=== PATIENT | male | born 1935 | race Caucasian/White ===

== ENCOUNTER 2016-12-08 23:10 | Inpatient (IN) | payer OTHER, MEDICARE ==
[2016-12-08 23:29] LABS: BASOPHIL 2.2 % (0-2.0); EOSINOPHIL 2.7 % (0-4.5); MCH 32.2 pg (25.7-33.7); MCHC 33.7 g/dl (32.0-35.9); MEAN CELL VOLUME 95.5 fl (80-96); MEAN PLT VOLUME 7.8 fl (7.5-11.1); NEUTROPHILS 62.2 % (42.8-82.8); PLATELET COUNT 260 K/MM3 (134-434); RDW 12.7 % (11.9-15.9); WHITE BLOOD COUNT 9.3 K/mm3 (4.0-10.8)
--- NOTE | 2016-12-08 23:30 | PDOC ---
History of Present Illness - General Chief Complaint: Syncope/Near Syncope Stated Complaint: BIBA, S/P SYNCOPAL EPISODE Time Seen by Provider: 12/08/16 23:23 - History of Present Illness Initial Comments: 12/08/16 23:38 This 81-year-old man without significant past medical history is brought in by ambulance with a history of syncope and abdominal discomfort. Patient states that he felt lightheaded at approximately 10 PM tonight; he may have felt some vague abdominal discomfort at this time. He went to his bedroom to lie down. He became more lightheaded with diaphoresis and felt nausea with "pressure" on the right side of his abdomen. He attempted to go to the bathroom but fainted when he arose, striking his head and right knee. Patient quickly regained consciousness and was able to walk to the bathroom. He was found by his , sitting on the toilet, bleeding from forehead wound and she called EMS. He denies chest pain, palpitations or shortness of breath. In retrospect, the patient and his recall that he felt lightheaded 4 days prior to presentation when he was attending a . Conditions were crowded and hot; symptoms resolved when conditions improved. He had no loss of consciousness or fall at that time. Prior to that, his only other syncopal episode was at age 21. Soon after patient arrived in the emergency room, awake and alert, he had urge to have a bowel movement: Patient had passage of loose stool. After this, patient states that he had resolution of most of his abdominal discomfort. Nonsmoker Drinks a glass of wine with dinner each night On no medications NO KNOWN DRUG ALLERGIES Past History - Past Medical History Allergies/Adverse Reactions: Allergies Allergy/AdvReac Type Severity Reaction Status Date / Time No Known Allergies Allergy Verified 03/18/16 08:54 Home Medications: Ambulatory Orders NK [No Known Home Medication] 02/18/15 Anemia: No Asthma: No Cancer: No Cardiac Disorders: No CVA: No COPD: No CHF: No Dementia: No Diabetes: No GI Disorders: No Disorders: No HTN: No Hypercholesterolemia: No Liver Disease: No Seizures: No Thyroid Disease: No - Surgical History Abdominal Surgery: No Appendectomy: No Cardiac Surgery: No Cholecystectomy: No Lung Surgery: No Neurologic Surgery: No Orthopedic Surgery: No - Suicide/Smoking/Psychosocial Hx Smoking History: Former smoker Have you smoked in the past 12 months: No Number of Cigarettes Smoked Daily: 0 If you are a former smoker, when did you quit?: 1974 Information on smoking cessation initiated: No Hx Alcohol Use: No Drug/Substance Use Hx: No Substance Use Type: Alcohol Hx Substance Use Treatment: No Cardiac Specific PMH - Complaint Specific PMHX Pacemaker: No Review of Systems - Review of Systems Able to Perform ROS?: Yes Comments:: 12 point review of systems is negative except for what is noted in the history of present illness *Physical Exam - Vital Signs Last Vital Signs Temp Pulse Resp BP Pulse Ox 98.6 F 77 18 163/73 100 12/09/16 03:12/09/16 03:12/09/16 03:12/09/16 03:12/09/16 03:50 - Physical Exam Comments: GENERAL: Elderly man, alert and oriented 3, in no acute distress EYES: PERRLA, pupils 2 mm and equal, EOMI, sclera anicteric, conjunctiva clear. ENT: Ears normal, nares patent, oropharynx clear without exudates. Dry mucous membranes. NECK: Normal range of motion, supple without lymphadenopathy, JVD, or masses. LUNGS: Breath sounds equal, clear to auscultation bilaterally. No wheezes, and no crackles. HEART:Regular rate and rhythm, normal S1 and S2 without murmur, rub or gallop. ABDOMEN:.normal bowel sounds No guarding,tenderness or rebound.No masses No distention. Palpable femoral pulse bilaterally EXTREMITIES: Normal range of motion, no edema. No clubbing or cyanosis. No erythema, or tenderness. NEUROLOGICAL: Cranial nerves II through XII grossly intact. Normal speech. No focal neurological deficits. MUSCULOSKELETAL: Back non-tender to palpation, no CVA tenderness SKIN: Midline forehead skin tear4 cm by 3 cm irregular bordered skin tear Right anterior knee abrasion2 cm by 1 cm Left anterior lower leg skin tearsproximal, flap shaped 3 cm Distal, 5 cm by 4 cm along the midline anterior mid-tibial surface Eligibility Checklist For AMI - INCLUSION CRITERIA Prolonged (>30 minutes)ischemic pain: No 12 Lead ECG indicates AMI: Yes ST elevation >1 mm in at least 2 limb leads: Yes ST elevation>2 mm in at least 2 contiguous precordial leads: No LBBB with clinical symptoms consistent with an AMI: No - EXCLUSION CRITERIA Active internal bleeding or hx of hemorrhagic diathesis: No Known bleeding diathesis: No Major surgery or serious trauma within the previous 6 weeks: No (head injury with current syncope; CT negative) History of cerebrovascular accident(CVA): No History of central nervous system structural abnormality: No History of malignant hypertension or uncontrolled HTN: No Hemostatic defects secondary to severe hepatic/renal disease: No Diabetic hemorrhagic retinopathy: No or recent delivery(within 6 weeks): No Patients currently receiving oral anticoagulants(INR>2): No ED Treatment Course - LABORATORY CBC & Chemistry Diagram: 12/08/16 23:19 12/08/16 23:19 - ADDITIONAL ORDERS Additional order review: Laboratory Results 12/08/16 12/08/16 12/08/16 23:48 23:23 23:19 PT with INR INR Sodium 138 Potassium 4.1 Chloride 109 H Carbon Dioxide 20 L D Anion Gap 9 BUN 25 H Creatinine 1.7 H D Creat Clearance w eGFR 38.97 Random Glucose 202 H D Calcium 9.4 Total Bilirubin 1.2 H D AST 72 H D ALT 49 H D Alkaline Phosphatase 49 Creatine Kinase 111 Troponin I 0.50 Total Protein 6.2 L Albumin 3.8 Stool Occult Blood Negative 12/08/16 23:19 PT with INR 12.6 INR 1.13 Sodium Potassium Chloride Carbon Dioxide Anion Gap BUN Creatinine Creat Clearance w eGFR Random Glucose Calcium Total Bilirubin AST ALT Alkaline Phosphatase Creatine Kinase Troponin I Total Protein Albumin Stool Occult Blood 12/08/16 23:19 RBC 4.51 MCV 95.5 MCHC 33.7 RDW 12.7 MPV 7.8 Neutrophils % 62.2 Lymphocytes % 24.7 Monocytes % 8.2 Eosinophils % 2.7 Basophils % 2.2 H D - RADIOLOGY Radiology Studies Ordered: Category Date Time Status ABDOMEN & PELVIS CT W/O CONTR [CT] Stat CT Scan 12/08/16 23:[address] WITHOUT CONTRAST [CT] Stat CT Scan 12/08/16 23:30 Taken CHEST X-RAY PORTABLE* [RAD] Stat Radiology 12/09/16 01:12 Taken - Medications Given in the ED: ED Medications Discontinued Medications Generic Name Dose Route Start Last Admin Trade Name Freq PRN Reason Stop Dose Admin Aspirin 162 mg 12/09/16 00:39 12/09/16 01:04 Asa - PO 12/09/16 00:40 162 mg ONCE ONE Administration Clopidogrel Bisulfate 300 mg 12/09/16 00:42 12/09/16 01:04 Plavix - PO 12/09/16 00:43 300 mg ONCE ONE Administration Enoxaparin Sodium 80 mg 12/09/16 00:45 12/09/16 00:47 Lovenox - SQ 80 mg ONCE MELODY Administration Metoprolol Tartrate 25 mg 12/09/16 01:37 12/09/16 01:40 Lopressor - PO 12/09/16 01:38 25 mg ONCE ONE Administration Medical Decision Making - Medical Decision Making 12/09/16 00:31 12-lead electrocardiogram notable for normal sinus rhythm at 70 bpm; ST elevations (2 mm) in the inferior leads; is also ST segment depressions in V1 and V2. [place] is normal. There is first-degree AV block with SC interval of 238ms Laboratory evaluation notable for troponin of 0.50. Also, transaminase levels are mildly elevated. Case discussed with Dr. Villarreal. In light of patient's lack of chest pain, shortness of breath, palpitations, etc., the timeframe of patient's infarct is unclear (that is, injury may have been a few days ago). Therefore, fibrinolytic therapy was not recommended. Preliminary interpretation of noncontrast head CT by Dr. Sorto: No evidence of bleed or other acute intracranial abnormalities. Preliminary interpretation of noncontrast abdominal/pelvic CT by Dr. Sorto: Diverticulosis without evidence of abscess/aneurysm or other acute intra- abdominal process. Lovenox/Plavix/aspirin will be administered as usual Lopressor 25mg given PO 12/09/16 01:36 Dr. Villarreal contacted again: Considering the unclear time course of myocardial injury, emergent catheterization not planned. Patient will be admitted for further diagnostic studies as per medical course Case discussed with [facility] service. Patient will be admitted to telemetry here at [facility]. Portable chest x-ray performed: No acute disease Using sterile technique, for head skin tear and left lower extremity skin tears were cleansed using sterile normal saline and partially avulsed skin brought back over the exposed dermis. Dermabond skin glue was used in areas of close skin approximation. The wounds were covered with dry sterile gauze on the leg and large Band-Aid on the forehead. Right knee skin abrasion was cleansed and covered with bacitracin/Band-Aid *DC/Admit/Observation/Transfer Diagnosis at time of Disposition: Syncope Acute AR Qualifiers: Myocardial infarction ST status: ST elevation myocardial infarction - Discharge Dispostion Condition at time of disposition: Guarded Admit: Yes Decision to Admit order Date/Time: Decision to Admit Order Category Date Time Status Decision to Admit to Hospital Routine Admission 12/09/16 02:15 Active
[2016-12-08 23:36] LABS: INR 1.13 (0.82-1.09); PROTHROMBIN TIME (PATIENT) 12.6 SEC (10.2-13.0)
[2016-12-08 23:41] LABS: ALBUMIN 3.8 g/dl (3.5-5.0); ALK PHOS 49 U/L (32-92); ANION GAP 9 (8-16); BILIRUBIN,TOTAL 1.2 mg/dl (0.2-1.0); CALCIUM 9.4 mg/dl (8.4-10.2); CO2 20 mmol/L (22-28); CREATININE 1.7 mg/dl (0.6-1.3); GLUCOSE,RANDOM 202 mg/dl (74-106); SGOT/AST 72 U/L (10-42); SGPT/ALT 49 U/L (10-40); TOT PROT 6.2 g/dl (6.4-8.3)
[2016-12-08 23:49] LABS: TROPONIN I (DFP) 0.5 ng/ml (0.03-0.50)
[2016-12-09] MEDS ORDERED: ASPIRIN 81 MG CHEWABLE TABLETS PO ONE (00:39)
[2016-12-09] MEDS ORDERED: CLOPIDOGREL BISULFATE 300 MG TABLET PO ONE (00:42)
[2016-12-09] MEDS ORDERED: ENOXAPARIN NA (PORCINE) 80 MG/0.8 ML DISP.SYRIN SQ ONE (00:45)
[2016-12-09] MEDS ORDERED: ENOXAPARIN NA (PORCINE) 80 MG/0.8 ML DISP.SYRIN SQ SCH ×2 (00:45→12:00)
[2016-12-09] MEDS ORDERED: ENOXAPARIN NA (PORCINE) 100 MG/1 ML DISP.SYRIN SQ ONE (00:49)
[2016-12-09] MEDS ORDERED: ASPIRIN 81 MG CHEWABLE TABLETS ONE ×2 (00:49→00:50)
[2016-12-09] MEDS ORDERED: CLOPIDOGREL BISULFATE 300 MG TABLET ONE (00:49)
[2016-12-09] MEDS ORDERED: METOPROLOL TARTRATE 25 MG TABLET (FP) PO ONE (01:37)
[2016-12-09] MEDS ORDERED: METOPROLOL TARTRATE 50 MG TABLET (FP) ONE (01:41)
[2016-12-09] MEDS ORDERED: SODIUM CHLORIDE 1,000 ML IV SCH (02:15)
--- NOTE | 2016-12-09 02:32 | HOSP ---
Physical Examination Vital Signs: Vital Signs Temperature 98 F 12/08/16 23:11 Pulse Rate 72 12/09/16 00:30 Respiratory Rate 14 12/09/16 00:30 Blood Pressure 150/64 12/09/16 00:30 O2 Sat by Pulse Oximetry (%) 98 12/09/16 00:30 Labs: CBC, BMP 12/08/16 23:19 12/08/16 23:19 Hospitalist Encounter Assessment: Got a microblog for an admission for patient Gopi Lyons. Spoke with Dr. Vogt over the phone who mentioned that patient came in to the ER due to syncope and abdominal discomfort. Vitals were stable. Labs were significant for creatinine 1.7, troponin 0.5. EKG showed ST elevation in inferior leads. Patient was treated for STEMI with Aspirin 162mg; Plavix 300 mg and Lovenox 80 mg sq in the ED. Requested Dr. Vogt to speak with the self pay collector Dr. Villarreal regarding catheterization and if she recommended cath, to transfer the patient from [facility] for cath in tertiary care center. Dr. Villarreal mentioned patient doesn't need emergent cath at this time and agreed to the above mentioned plan. Notified Dr. Hudson. A/P: 81-year-old man without significant past medical history is brought in by ambulance with a history of syncope and abdominal discomfort was found to be in STEMI # STEMI Admit in Telemetry in [facility]. Continuous cardiac monitoring Continue Aspirin 81mg, Plavix 75mg Daily Lovenox 80mg sq BID Repeat Troponin at 6am Repeat EKG in am ECHO ordered Lipid panel and A1c ordered Cardiology consult requested (Dr. Villarreal). No emergent cath required as per cardio since patient is not in active chest pain, troponin is mildly elevated. Would consider transferring patient to tertiary center for possible cath # YOVANA likely prerenal Creatinine 1.7 (baseline 1.1 in 2016) IV NS @ 83mls.hr Avoid nephrotoxic drugs Repeat Creatinine Urine electrolytes in am. # Syncope could be due to dehydration. R/O Arrythmia, electrolyte imbalance ECHO, Carotid doppler TSH Case discussed with Dr. Hudson who agrees to the above plan. Will sign out to day team. Visit type - Emergency Visit Emergency Visit: Yes ED Registration Date: 12/09/16 Care time: The patient presented to the Emergency Department on the above date and was hospitalized for further evaluation of their emergent condition. - New Patient This patient is new to me today: Yes Date on this admission: 12/09/16 - Critical Care Critical Care patient: No
[2016-12-09 03:49] VITALS: TEMP 98.6
[2016-12-09 04:04] VITALS: BMI 27.6
[2016-12-09 07:01] LABS: URINE APPEARANCE Clear; URINE BILIRUBIN Negative (NEGATIVE); URINE BLOOD Trace-intact (NEGATIVE); URINE COLOR YELLOW; URINE GLUCOSE (UA) Negative (NEGATIVE); URINE KETONE Negative (NEGATIVE); URINE LEUK ESTERASE Negative (NEGATIVE); URINE NITRITE Negative (NEGATIVE); URINE PROTEIN Negative (NEGATIVE); URINE UROBILINOGEN 0.2 (0.2-1.0)
[2016-12-09 07:02] LABS: URINE BACTERIA FEW /hpf (NEGATIVE); URINE RBC 0-3 /hpf (0-3); URINE WBC 0-3 (3-5)
--- NOTE | 2016-12-09 07:29 | HP ---
CHIEF COMPLAINT: syncopal episode PCP: Dr Herrera HISTORY OF PRESENT ILLNESS: Patient is a 81 y/o with no significant past medical history as per the patient. He reports arriving home yesterday (12/08/16 ) and felt increasingly [place]. [place] [id number] his nausea increased and attempted to ambulate to the bathroom in which he had a syncopal episode. He reports waking up on the floor with a headache and was transported to the emergency department by EMS. Patient also reports at 5 days ago he was walking and developed an episode of lightheadness and diaphoresis. He attributed his symptoms to the heat and did not seek medical attention at the time. Moreover, his reports for the past 2 months, the patient has been experiencing increased fatigue with lack of interest in everyday activities. Patient denies any chest pain or chest discomfort. ER course was notable for: (1) [place] 0009 ST elevations in II, III, AVF (2) troponin 0.5 (3) plavix 300mg, lopressor 25mg, lovenox 80mg given in ED (4) roll line operator Dr Villarreal consulted in ED by ED physician Recent Travel: none PAST MEDICAL HISTORY: none PAST SURGICAL HISTORY: none Social History: resides at home retired with his Smoking: none Alcohol:none Drugs: none Family History: mother and father of natural causes Allergies No Known Allergies Allergy (Verified 03/18/16 08:54) HOME MEDICATIONS: Home Medications Medication Instructions Recorded NK [No Known Home Medication] 02/18/15 REVIEW OF SYSTEMS CONSTITUTIONAL: Absent: fever, chills, diaphoresis, generalized weakness, malaise, loss of appetite, weight change HEENT: Absent: rhinorrhea, nasal congestion, throat pain, throat swelling, difficulty swallowing, mouth swelling, ear pain, eye pain, visual changes CARDIOVASCULAR: Absent: chest pain, syncope, palpitations, irregular heart rate, lightheadedness , peripheral edema RESPIRATORY: Absent: cough, shortness of breath, dyspnea with exertion, orthopnea, wheezing, stridor, hemoptysis GASTROINTESTINAL: Present: nausea, Absent: abdominal pain, abdominal distension, vomiting, diarrhea, constipation , melena, hematochezia GENITOURINARY: Absent: dysuria, frequency, urgency, hesitancy, hematuria, flank pain, genital pain MUSCULOSKELETAL: Absent: myalgia, arthralgia, joint swelling, back pain, neck pain SKIN: Absent: rash, itching, pallor HEMATOLOGIC/IMMUNOLOGIC: Absent: easy bleeding, easy bruising, lymphadenopathy, frequent infections ENDOCRINE: Absent: unexplained weight gain, unexplained weight loss, heat intolerance, cold intolerance NEUROLOGIC: Absent: headache, focal weakness or paresthesias, dizziness, unsteady gait, seizure, mental status changes, bladder or bowel incontinence PSYCHIATRIC: Absent: anxiety, depression, suicidal or homicidal ideation, hallucinations. PHYSICAL EXAMINATION Vital Signs - 24 hr 12/09/16 12/09/16 12/09/16 03:11 03:48 03:50 Temperature 98.6 F Pulse Rate 77 Respiratory 18 Rate Blood Pressure 163/73 O2 Sat by Pulse 100 100 Oximetry (%) GENERAL: Awake, alert, and fully oriented, in no acute distress. HEAD: abrasion to nose and avulsion to forehead EYES: Pupils equal, round and reactive to light, extraocular movements intact, sclera anicteric, conjunctiva clear. No lid lag. EARS, NOSE, THROAT: Ears normal, nares patent, oropharynx clear without exudates. Moist mucous membranes. NECK: Normal range of motion, supple without lymphadenopathy, JVD, or masses. LUNGS: Breath sounds equal, clear to auscultation bilaterally. No wheezes, and no crackles. No accessory muscle use. HEART: Regular rate and rhythm, normal S1 and S2, 2/6 systolic murmur, rub or gallop. ABDOMEN: Soft, nontender, not distended, normoactive bowel sounds, no guarding, no rebound, no masses. No hepatomegaly or splenomegaly. MUSCULOSKELETAL: Normal range of motion at all joints. No bony deformities or tenderness. No CVA tenderness. UPPER EXTREMITIES: 2+ pulses, warm, well-perfused. No cyanosis. No clubbing. No peripheral edema. LOWER EXTREMITIES: 2+ pulses, warm, well-perfused. No calf tenderness. No peripheral edema. abrasion to the left lower extremity NEUROLOGICAL: Cranial nerves II-XII intact. Normal speech. Normal gait. PSYCHIATRIC: Cooperative. Good eye contact. Appropriate mood and affect. SKIN: Warm, dry, normal turgor, no rashes or lesions noted, normal capillary refill. ASSESSMENT/PLAN: F/E/N -NPO - replete lytes prn ppx - pepcid - heparin gtt dispo: requires immediate transfer to [place] shift lab technician, case accepted by Dr Evans roll line operator, pt en route to [facility] at 0930 via ALS ambulance, with patient made aware all questions answered. Problem List - Problem (1) Acute NH Assessment/Plan: - ekg reviewed from ED, notable for acute inferior wall NH, first troponin 0.5, patient immediately started on heparin gtt, lipitor ordered, second troponin 33 , second ekg notable for first degree AV Block, left axis deviation, st elevations in lead III and AVF, [facility] contacted, case discussed with Dr Trinidad, roll line operator at [facility], and patient accepted to labor relations consultant at [facility], ALS transport team dispatched - stat ECHO - continue heparin gtt - Dr Wilkinson roll line operator notified and agrees with plan Code(s): I21.3 - ST ELEVATION (STEMI) MYOCARDIAL INFARCTION OF [facility] SITE Qualifiers: Myocardial infarction ST status: ST elevation myocardial infarction (2) Syncope Assessment/Plan: - continous cardiac monitoring, secondary to hypovolemia Code(s): R55 - SYNCOPE AND COLLAPSE (3) YOVANA (acute kidney injury) Assessment/Plan: -creatine 1.6 secondary to hypovolemia, gentle iv hydration initiated, repeat creatine is 1.3 closer to baseline of 1.0 - continue ivf, repeat bmp at 1800 Code(s): N17.9 - ACUTE KIDNEY FAILURE, UNSPECIFIED Visit type - Emergency Visit Emergency Visit: Yes ED Registration Date: 12/09/16 Care time: The patient presented to the Emergency Department on the above date and was hospitalized for further evaluation of their emergent condition. - New Patient This patient is new to me today: Yes Date on this admission: 12/09/16 - Critical Care Critical Care patient: Yes Total Critical Care Time (in minutes): 60 Critical Care Statement: The care of this patient involved high complexity decision making to prevent further life threatening deterioration of the patient 's condition and/or to evaluate & treat vital organ system(s) failure or risk of failure.
[2016-12-09 07:38] LABS: BASOPHIL 0.2 % (0-2.0); EOSINOPHIL 0.8 % (0-4.5); MCHC 33.2 g/dl (32.0-35.9); MEAN CELL VOLUME 96.4 fl (80-96); MEAN PLT VOLUME 7.6 fl (7.5-11.1); NEUTROPHILS 83.7 % (42.8-82.8); PLATELET COUNT 234 K/MM3 (134-434); RDW 12.5 % (11.9-15.9); WHITE BLOOD COUNT 10.6 K/mm3 (4.0-10.8)
[2016-12-09 08:04] LABS: ALBUMIN 3.5 g/dl (3.5-5.0); ALK PHOS 48 U/L (32-92); ANION GAP 4 (8-16); BILIRUBIN,TOTAL 0.4 mg/dl (0.2-1.0); CALCIUM 8.8 mg/dl (8.4-10.2); CO2 23 mmol/L (22-28); CREATININE 1.3 mg/dl (0.6-1.3); GLUCOSE,RANDOM 145 mg/dl (74-106); SGOT/AST 117 U/L (10-42); SGPT/ALT 48 U/L (10-40); TOT PROT 5.5 g/dl (6.4-8.3)
[2016-12-09 08:20] LABS: TROPONIN I 33.87 ng/ml (0.00-0.05)
[2016-12-09] MEDS ORDERED: HEPARIN INFUSION - 500 ML IVPB SCH (08:30)
[2016-12-09] MEDS ORDERED: HEPARIN NA (PORCINE) 5,000 UNITS/ML 1ML VIAL IVPUSH ONE (08:43)
[2016-12-09] MEDS ORDERED: HEPARIN NA (PORCINE) 5,000 UNITS/ML 1ML VIAL IVPUSH PRN ×2 (08:43)
[2016-12-09] MEDS ORDERED: HEPARIN INFUSION - 500 ML IV SCH (08:45)
[2016-12-09] MEDS ORDERED: ATORVASTATIN CA 80 MG TABLET (FP) PO ONE (08:50)
--- NOTE | 2016-12-09 09:35 | EKG ---
Test Reason : Blood Pressure : / mmHG Vent. Rate : 070 BPM Atrial Rate : 070 BPM P-R Int : 238 ms QRS Dur : 102 ms QT Int : 388 ms P-R-T Axes : 019 -17 026 degrees QTc Int : 419 ms SINUS RHYTHM WITH SINUS ARRHYTHMIA WITH 1ST DEGREE A-V BLOCK ACUTE INFERIOR-POSTERIOR INFARCT ACUTE UT / STEMI ABNORMAL ECG NO PREVIOUS ECGS AVAILABLE Confirmed by CATRACHITA PETTIT, LEANNA ([id number]) on 12/09/2016 9:35:21 AM Referred By: MD ELLIS Confirmed By:LEANNA DOMÍNGUEZ MD
--- NOTE | 2016-12-09 09:38 | CON.CARD ---
Consult Consult Specialty:: Cardiology Referred by:: Dr. Jes Whitaker Reason for Consultation:: Inferior STEMI, syncope - History of Present Illness Chief Complaint: Syncope History of Present Illness: 81 yo male with no significant past medical history who was admitted yesterday with fatigue/nausea, which increased at ~ 10 PM last evening and was followed by syncope when walking to bathroom. He sustained head trauma and abrasion to his forehead and extremities. He denies any chest pain or palpitations prior to syncopal event. However, his reports that he has been feeling more fatigued over the past several months. Denies melena, hematochezia, or hematemesis. ECG in ED demonstrated ST elevation in inferior leads and ST depression in V1-2 suggestive of inferior-posterior infarct. Initial troponin was 0.5 (at 23:23) but increased to 33.87 (at 7:00 AM today). Currently remains without chest pain. Head CT demonstrated moderate atrophy but no acute intracranial process. - History Source History Provided By: Patient, Significant Other Limitations to Obtaining History: No Limitations - Alcohol/Substance Use Hx Alcohol Use: No - Smoking History Smoking history: Former smoker Have you smoked in the past 12 months: No Aproximately how many cigarettes per day: 0 If you are a former smoker, when did you quit?: 1974 Home Medications - Allergies Allergies/Adverse Reactions: Allergies Allergy/AdvReac Type Severity Reaction Status Date / Time No Known Allergies Allergy Verified 03/18/16 08:54 - Home Medications Home Medications: Ambulatory Orders NK [No Known Home Medication] 02/18/15 Family Disease History - Family Disease History Family History: Denies (premature CAD) Review of Systems - Review of Systems Constitutional: denies: Fever, Night Sweats, Unintentional Wgt. Loss Cardiovascular: denies: Chest Pain, Edema, Palpitations Respiratory: reports: SOB on Exertion Gastrointestinal: reports: Nausea Genitourinary: reports: No Symptoms Musculoskeletal: reports: No Symptoms Neurological: reports: Syncope Endocrine: reports: No Symptoms Hematology/Lymphatic: reports: No Symptoms Psychiatric: reports: No Symptoms Vital Signs: Vital Signs Temperature 98.6 F 12/09/16 03:11 Pulse Rate 77 12/09/16 03:11 Respiratory Rate 18 12/09/16 03:11 Blood Pressure 163/73 12/09/16 03:11 O2 Sat by Pulse Oximetry (%) 100 12/09/16 03:50 Constitutional: Yes: Well Nourished, No Distress Eyes: Yes: Conjunctiva Clear, EOM Intact HENT: Yes: Other (abrasion on forehead and nose) Respiratory: Yes: CTA Bilaterally Gastrointestinal: Yes: Normal Bowel Sounds, Soft. No: Distention, Tenderness Cardiovascular: Yes: Regular Rate and Rhythm JVD: No Carotid Bruit: No PMI: Non-Displaced Heart Sounds: Yes: S1, S2 Murmur: No: Systolic Murmur Edema: No Peripheral Pulses WNL: Yes Neurological: Yes: Alert, Oriented, Cran Nerves II-XII Intact Psychiatric: Yes: WNL - Other Data Labs, Other Data: CBC, BMP 12/09/16 07:00 12/09/16 07:00 INR, PTT INR 1.13 (0.82-1.09) 12/08/16 23:19 Troponin, BNP 12/09/16 07:00 Troponin I 33.87 H* Troponin, BNP 12/09/16 07:00 Troponin I 33.87 H* 12/09/16 (at 00:09): ST elevation in inferior leads and ST depression in V1-2 suggestive of inferior-posterior infarct Imaging - Results Chest X-ray: Report Reviewed (12/09/16: No infiltrate), Image Reviewed Cat Scan: Report Reviewed (12/08/[address]: Moderate atrophy, no acute intracranial process/hemorrhage) Assessment/Plan 81 yo male admitted with acute inferior-posterior STEMI with trop 33.87, and syncopal event last evening. Currently without chest pain. RECS: Patient received metorpolol, aspirin, Plavix, & atorvastatin last evening. Patient received Lovenox dose last evening at ~ 00:47 (ordered by resident), and started on heparin gtt this morning at 8:30 AM. Patient being transferred to [facility] for urgent cardiac catheterization. Patient to follow-up in our office following discharge from [facility]. Plan was discussed with patient and his .
[2016-12-09 09:55] LABS: THYROID STIMULATING HORMONE 1.01 uIU/ml (0.358-3.74)
[2016-12-09 09:59] VITALS: BP 152/65; PULSE 75
[2016-12-09] MEDS ORDERED: CLOPIDOGREL BISULFATE 75 MG TABLET (FP) PO SCH (10:00)
[2016-12-09] MEDS ORDERED: ASPIRIN COATED 81 MG TABLET.EC PO SCH (10:00)
[2016-12-09 11:05] LABS: CHOLESTEROL 151 mg/dl
[2016-12-09] MEDS ORDERED: CEPHALEXIN MONOHYDRATE 500 MG CAPSULE (UD) PO SCH (12:00)
--- NOTE | 2016-12-10 15:14 | EKG ---
Test Reason : Blood Pressure : / mmHG Vent. Rate : 074 BPM Atrial Rate : 074 BPM P-R Int : 204 ms QRS Dur : 108 ms QT Int : 370 ms P-R-T Axes : 037 -36 -09 degrees QTc Int : 410 ms SINUS RHYTHM with sinus arrhythmia .? APCs LEFT AXIS DEVIATION INFERIOR INFARCT (CITED ON OR BEFORE 09-DEC-2016) WHEN COMPARED WITH ECG OF 09-DEC-2016 00:09, AR INTERVAL HAS DECREASED SERIAL CHANGES OF EVOLVING INFERIOR INFARCT PRESENT Confirmed by MD ZANE, MANGO ([id number]) on 12/10/2016 3:14:33 PM Referred By: NELA HOLLOWAY Confirmed By:MANGO DEGROOT MD
== END 2016-12-09 09:30 | disposition short-term general hospital (02) | DRG 281 ==
LOC: FER 23:10 → FM/S 12-09 02:47
PROVIDERS: ADMIT Internal Medicine; ATTEND Nurse Practitioner Family
DX: I21.11 ST elevation (STEMI) myocardial infarction involving right coronary artery (principal); N17.9 Acute kidney failure, unspecified; Z87.891 Personal history of nicotine dependence; R55 Syncope and collapse; S00.81XA Abrasion of other part of head, initial encounter; S80.211A Abrasion, right knee, initial encounter; S80.812A Abrasion, left lower leg, initial encounter; L08.9 Local infection of the skin and subcutaneous tissue, unspecified; W01.0XXA Fall on same level from slipping, tripping and stumbling without subsequent striking against object, initial encounter; Y93.89 Activity, other specified; Y92.098 Other place in other non-institutional residence as the place of occurrence of the external cause; Y99.8 Other external cause status; I44.0 Atrioventricular block, first degree; R74.0 Nonspecific elevation of levels of transaminase and lactic acid dehydrogenase [LDH]; E86.1 Hypovolemia
CPT/HCPCS: 36415; 70450-TC; 71010-TC; 74176-TC; 80053; 80061; 81003; 81015; 82272; 82553; 83036; 83721; 84443; 84484; 85025; 85610; 93005; 93010; 93306-TC; 99285-25; J1644

== ENCOUNTER 2024-07-03 20:20 | Emergency (ER) | payer OTHER, MEDICARE ==
[2024-07-03 20:25] VITALS: BP 115/62; PULSE 72; RESP 18; TEMP 98.4; BMI 28.3
== END 2024-07-03 21:12 | disposition home or self-care (01) ==
LOC: FER 20:20
DX: Z48.02 Encounter for removal of sutures (principal)
CPT/HCPCS: 99281-25